=== PATIENT | female | born 1950 | race Caucasian/White ===

== ENCOUNTER 2020-04-07 15:05 | Emergency (ER) | payer MEDICARE ==
[2020-04-07] MEDS ORDERED: ASPIRIN 325MG EC TAB 325 MG TABLET.DR PO ONE (15:26)
[2020-04-07 15:39] LABS: BASOPHILS % (AUTO) 0.4 % (0.0-5.0); HEMATOCRIT 39.7 % (36-48); LYMPHOCYTES % (AUTO) 21.5 % (21.0-51.0); MEAN CORPUSCULAR HGB CONC 32.2 g/dL (32.0-36.0); MEAN CORPUSCULAR VOLUME 86.9 fL (79-99); MONOCYTES % (AUTO) 6.1 % (3.0-13.0); NEUTROPHILS % (AUTO) 70.7 % (40.0-77.0); PLATELET COUNT (AUTO) 252 K/uL (130-400); RED BLOOD CELL COUNT(AUTO) 4.57 MIL/uL (4.00-5.50); RED CELL DISTRIBUTION WIDTH 13.2 % (11.0-15.5); WHITE BLOOD COUNT (AUTO) 9.1 K/uL (4.8-10.8)
[2020-04-07 15:50] LABS: CREATININE 1.4 mg/dL (0.5-1.5); POTASSIUM 5.3 mmol/L (3.5-5.1)
[2020-04-07 15:51] LABS: INR 3.19 (0.85-1.15); PROTHROMBIN TIME 31.3 SEC (9.6-11.6)
[2020-04-07 15:53] LABS: PARTIAL THROMBOPLASTIN TIME 34.8 SEC (26.3-35.5)
[2020-04-07 15:55] LABS: ALBUMIN 3.9 g/dL (3.5-5.0); BILIRUBIN,TOTAL 0.7 mg/dL (0.2-1.0); TOTAL PROTEIN, SERUM 7.7 g/dL (6.0-8.3)
[2020-04-07] MEDS ORDERED: SODIUM CHLORIDE 0.9% 1000ML 1,000 ML IV ONE (16:08)
== END 2020-04-07 18:11 | disposition home or self-care (01) ==
LOC: EDH 15:05
DX: I48.91 Unspecified atrial fibrillation (principal); E11.9 Type 2 diabetes mellitus without complications; I10 Essential (primary) hypertension; E78.5 Hyperlipidemia, unspecified; Z90.710 Acquired absence of both cervix and uterus
CPT/HCPCS: 36415; 71045; 80053; 82550; 84484; 85025; 85610; 85730; 93005; 99285; J7030

== ENCOUNTER → 2024-03-21 | Outpatient (CLI) | payer MEDICARE ==
[~2024-03-21] MED LIST: GADOTERATE MEGLUMINE 10 MMOL/20 ML VIAL IV ONE
--- NOTE | 2024-03-21 12:28 | HMCIMG ---
MR ABDOMEN W/WO CON REASON: C22.0 Liver cell carcinoma COMPARISON: None TECHNIQUE: Routine imaging protocol was performed in the axial and coronal plane with T1, proton density, T2 and gradient recalled sequences. Images are also obtained pre and postgadolinium contrast infusion, 19 cc Clariscan IV. FINDINGS: Left lobe of the liver appears shrunken and irregular. There is a 2 cm cyst in the lateral segment left lobe of the liver. There is no associated soft tissue mass. There is no abnormal contrast enhancement. There are 2 additional focal liver lesions. One is just lateral to the caudate lobe measuring 1.1 cm. The second is in the posterior segment right lobe of the liver measuring 1 cm. These lesions may be cysts, as they're best defined on the last postcontrast acquisition and show no sign of filling in with contrast. Ultrasound is recommended for further evaluation of these lesions. There are no other focal liver lesions. Spleen and kidneys appear normal. The pancreas is unremarkable. There is some material in the dependent portion of the gallbladder, either sludge or very small stones. There is no wall thickening or edema. Exam is otherwise unremarkable. IMPRESSION: 1. Shrunken and irregular appearance of the lateral segment left lobe of the liver, there is a central 2 cm cyst, this has thin amaral with no abnormal contrast enhancement. 2. This may be the sequela of treatment or ablation of a focal liver lesion, there is no MR evidence of remaining neoplasm. 3. There are 2 additional focal liver lesions, including a 1.1 cm lesion just lateral to the caudate lobe and the second posterior segment right lobe of the liver, these both are well-circumscribed and postcontrast images and may be cysts, ultrasound recommended for further evaluation in this regard.
== END | disposition home or self-care (01) ==
LOC: RAH 10:24
PROVIDERS: ATTEND Internal Medicine Hematology & Oncology
DX: C22.0 Liver cell carcinoma (principal); K76.89 Other specified diseases of liver
CPT/HCPCS: 74183; A9575